=== PATIENT | female | born 1985 ===

== ENCOUNTER 2023-01-25 06:00 | Inpatient (IN) | payer OTHER ==
[~2023-01-25] VITALS: Ht 162.6 cm; Wt 74.8 kg
[~2023-01-25 06:00] MED LIST: IRON PO
== END 2023-01-26 12:28 | disposition home or self-care (01) | DRG 743 ==
LOC: CIR.AMB 06:00 → O/R 12:51 → OB/GYN 13:37
PROVIDERS: ADMIT Obstetrics & Gynecology; ATTEND Obstetrics & Gynecology
PROC: 0UT74ZZ Resection of Bilateral Fallopian Tubes, Percutaneous Endoscopic Approach (ICD-10-PCS; 2023-01-25)
PROC: 0UT24ZZ Resection of Bilateral Ovaries, Percutaneous Endoscopic Approach (ICD-10-PCS; 2023-01-25)
PROC: 0UT94ZZ Resection of Uterus, Percutaneous Endoscopic Approach (ICD-10-PCS; principal; 2023-01-25 07:30)
DX: D25.1 Intramural leiomyoma of uterus (principal); D25.2 Subserosal leiomyoma of uterus; D25.0 Submucous leiomyoma of uterus; Z20.822 Contact with and (suspected) exposure to COVID-19